=== PATIENT | female | born 1980 | race Caucasian/White ===

== ENCOUNTER → 2020-09-12 | Outpatient (CLI) | payer BC ==
--- NOTE | 2020-09-12 14:27 | MM ---
Reason for exam: screening (asymptomatic). Baseline mammogram. History: Took hormonal contraceptives for 10 years beginning at age 20. Physical Findings: Nurse did not find any significant physical abnormalities on exam. MG 3D Screening Mammo W/Cad Bilateral CC and MLO view(s) were taken. There are scattered fibroglandular densities. Finding: There is a 5 mm obscured round mass located 2-3 cm from the nipple in the lower quadrant, anterior position of the left breast. These results were verbally communicated with the patient and result sheet given to the patient on 09/12/20. ASSESSMENT: Incomplete: need additional imaging evaluation, BI-RAD 0 RECOMMENDATION: Ultrasound of the left breast.
--- NOTE | 2020-09-12 14:29 | USB ---
Reason for exam: additional evaluation requested from abnormal screening. History: Took hormonal contraceptives for 10 years beginning at age 20. Physical Findings: Breast exam preformed at baseline screening. US Breast Limited LT Left limited breast ultrasound including focal area of concern, retroareolar and axilla demonstrates a 5 x 5 x 5mm lobular, round cystic lesion with septations at 6 o'clock, thin walled cyst with septations suspected. These results were verbally communicated with the patient and result sheet given to the patient on 09/12/20. ASSESSMENT: Probably benign, BI-RAD 3 RECOMMENDATION: Ultrasound of the left breast in 6 months.
== END | disposition home or self-care (01) ==
LOC: RADMAMWWP 12:15
PROVIDERS: ATTEND Obstetrics & Gynecology
DX: Z12.31 Encounter for screening mammogram for malignant neoplasm of breast (principal); R92.8 Other abnormal and inconclusive findings on diagnostic imaging of breast
CPT/HCPCS: 77063; 77067

== ENCOUNTER → 2021-03-20 | Outpatient (CLI) | payer BC ==
--- NOTE | 2021-03-20 09:33 | USB ---
Reason for exam: follow-up at short interval from prior study. History: Took hormonal contraceptives for 10 years beginning at age 20. Physical Findings: Nurse did not find any significant physical abnormalities on exam. US Breast Limited LT Technologist: Sarah Giron Left limited breast ultrasound including focal area of concern, retroareolar and axilla demonstrates no cystic or solid lesion seen. The previous 6 o'clock area, probable cyst cluster has resolved. 6 month follow up mammogram recommended at the time of the patient's annual. Scanned 5-9 o'clock. These results were verbally communicated with the patient and result sheet given to the patient on 03/20/21. ASSESSMENT: Probably benign, BI-RAD 3 RECOMMENDATION: Follow-up diagnostic mammogram of both breasts in 6 months.
== END | disposition home or self-care (01) ==
LOC: RADUSWWP 08:00
PROVIDERS: ATTEND Obstetrics & Gynecology
DX: R92.8 Other abnormal and inconclusive findings on diagnostic imaging of breast (principal)

== ENCOUNTER → 2021-10-23 | Outpatient (CLI) | payer BC ==
--- NOTE | 2021-10-23 14:22 | MM ---
Reason for exam: additional evaluation requested from prior study. Last mammogram was performed 1 year and 1 month ago. History: Took hormonal contraceptives for 10 years beginning at age 20. Physical Findings: A clinical breast exam by your physician is recommended on an annual basis and results should be correlated with mammographic findings. MG 3D Diag Mammo W/Cad SANAM Bilateral CC and MLO view(s) were taken. Prior study comparison: September 12, 2020, bilateral MG 3d screening mammo w/cad. There are scattered fibroglandular densities. There is chronic nodularity in the right breast. 6mm circumscribed nodule central left breast middle depth is new. Previous nodule has resolved. Suspect waxing/waning cysts. 6 month follow up recommended. Results were given to the patient verbally at the time of the exam. ASSESSMENT: Probably benign, BI-RAD 3 RECOMMENDATION: Follow-up diagnostic mammogram of the left breast in 6 months.
== END | disposition home or self-care (01) ==
LOC: RADMAMWWP 13:35
PROVIDERS: ATTEND Obstetrics & Gynecology
DX: R92.8 Other abnormal and inconclusive findings on diagnostic imaging of breast (principal)
CPT/HCPCS: 77062; 77066

== ENCOUNTER → 2022-10-12 | Outpatient (CLI) | payer OTHER ==
--- NOTE | 2022-10-12 15:58 | US ---
EXAMINATION TYPE: US thyroid st tissue head/neck DATE OF EXAM: 10/12/2022 COMPARISON: NONE CLINICAL HISTORY: I88.9 NONSPECIFIC LYMPHADENITIS, UNSPECIFIED. Patient states feeling a lump at righ t neck x 1 month ago. TECHNIQUE: FINDINGS: office technologist had patient point to palpable x 4 times, right CCA seen at area of concern. Multiple images of bilateral neck taken with no prominent lymph nodes visualized at time o f scan. IMPRESSION: 1. No suspicious abnormality to account for patient's palpable abnormality. Region that the patient i ndicates on current examination appears to be associated with the carotid artery.
== END | disposition home or self-care (01) ==
LOC: RADUSWWP 14:35
PROVIDERS: ATTEND Family Medicine
DX: I88.9 Nonspecific lymphadenitis, unspecified (principal)
CPT/HCPCS: 76536

== ENCOUNTER → 2022-10-16 | Outpatient (CLI) | payer OTHER ==
--- NOTE | 2022-10-19 14:05 | MM ---
Reason for Exam: Screening (asymptomatic). Last screening mammogram was performed 12 month(s) ago. Patient History: Menarche at age 11. First Full-Term at age 29. Hormonal Contraceptives for 10 years from age 20 until age 30. Last menstrual period: 09/23/2022 Risk Values: Radha 5 year model risk: 0.8%. NCI Lifetime model risk: 11.9%. Prior Study Comparison: 09/12/2020 Bilateral Screening Mammogram, [facility]. 10/23/2021 Bilateral Diagnostic Mammogram, [facility]. Tissue Density: There are scattered fibroglandular densities. Findings: Analyzed By CAD. Pattern appears symmetrical stable No suspicious groups of microcalcifications, spiculated or lobular masses, architectural distortion or other secondary signs of malignancy are mammographically apparent. Overall Assessment: Benign, BI-RAD 2 Management: Screening Mammogram of both breasts in 1 year. A negative mammogram report should not preclude additional follow up of suspicious palpable abnormalities. Patient should continue monthly self breast exam. A clinical breast exam by your physician is recommended on an annual basis and results should be correlated with mammographic findings. Electronically signed and approved by: Merrill Jhaveri D.O. Radiologis
== END | disposition home or self-care (01) ==
LOC: RADMAMWWP 09:05
PROVIDERS: ATTEND Obstetrics & Gynecology
DX: Z12.31 Encounter for screening mammogram for malignant neoplasm of breast (principal)
CPT/HCPCS: 77063; 77067

== ENCOUNTER → 2023-12-09 | Outpatient (CLI) | payer OTHER ==
--- NOTE | 2023-12-09 20:22 | MM ---
Reason for Exam: Screening (asymptomatic). Last mammogram was performed 1 year(s) and 1 month(s) ago. Patient History: Menarche at age 11. First Full-Term at age 29. Hormonal Contraceptives for 10 years from age 20 until age 30. Risk Values: Radha 5 year model risk: 0.9%. NCI Lifetime model risk: 11.8%. Prior Study Comparison: 09/12/2020 Bilateral Screening Mammogram, [facility]. 10/23/2021 Bilateral Diagnostic Mammogram, [facility]. 10/16/2022 Bilateral MG 3D screening mammo w/cad, [facility]. Tissue Density: There are scattered areas of fibroglandular density. Findings: Analyzed By CAD. There is no suspicious group of microcalcifications or new suspicious mass in either breast. Overall Assessment: Negative, BI-RAD 1 Management: Screening Mammogram of both breasts in 1 year. . Patient should continue monthly self-breast exams. A clinical breast exam by your physician is recommended on an annual basis. This exam should not preclude additional follow-up of suspicious palpable abnormalities. Note on Radha scores and lifetime risk: 1. A Radha score greater than 3% is considered moderate risk. If this is the case, consider specialist referral to assess eligibility for a risk reducing agent. 2. If overall lifetime risk for the development of breast cancer is 20% or higher, the patient may qualify for future screening with alternating mammogram and breast MRI. Electronically signed and approved by: Neyda Chavarria M.D. Radiologist
== END | disposition home or self-care (01) ==
LOC: RADMAMWWP 08:43
PROVIDERS: ATTEND Obstetrics & Gynecology
DX: Z12.31 Encounter for screening mammogram for malignant neoplasm of breast (principal)
CPT/HCPCS: 77063; 77067